=== PATIENT | female | born 1965 | race Caucasian/White ===

== ENCOUNTER → 2022-03-03 11:52 | Outpatient (BNVA) | payer OTHER, SELFPAY | PROVIDERS: PCP Internal Medicine; Visit Provider Psychiatry & Neurology Neurology | DX: G51.31 Clonic hemifacial spasm, right (principal) | CPT/HCPCS: 64612; J0585 ==

== ENCOUNTER → 2022-08-31 11:08 | Outpatient (BNVA) | payer OTHER, SELFPAY | PROVIDERS: PCP Internal Medicine; Visit Provider Psychiatry & Neurology Neurology | DX: G51.31 Clonic hemifacial spasm, right (principal) | CPT/HCPCS: 64612; J0585 ==

== ENCOUNTER → 2022-12-05 15:11 | Outpatient (BNVA) | payer OTHER, SELFPAY | PROVIDERS: PCP Internal Medicine; Visit Provider Psychiatry & Neurology Neurology | DX: G51.31 Clonic hemifacial spasm, right (principal) | CPT/HCPCS: 64612; 99211; J0585 ==

== ENCOUNTER 2023-05-10 09:47 | Outpatient (AMB) | payer OTHER, SELFPAY ==
--- NOTE | 2023-05-10 09:48 | A.OFFVIS_ITS ---
Intake Vital Signs 05/10/23 09:50 Height 5 ft 9 in Weight 162 lb 8 oz BMI 24.0 BP 144/90 H Blood Pressure Location Rt brachial Position Sitting Respiration 16 Pulse 71 Pulse Source Pulse Oximeter Pulse Oximetry (%) 100 Oxygen Delivery Method Room Air Intake Visit Reasons: Botox Intake Note: Pt presents to the office for Botox injections. Allergies No Known Allergies Allergy (Verified 05/10/23 09:49) Medication List - Last Reconciled 05/10/23 by Carmel Maynard MD lisinopril 5 mg PO DAILY metoprolol succinate ER 50 mg PO DAILY onabotulinumtoxinA (Botox) subcut HPI HPI Comments History of Present Illness Details 57y/o female comes for treatment with botox . side effects were explained again and patient agreed to the procedure . - side effects include increased weakness , droopy eyelids weakness of facial muscles etc. ??? Botulinum toxin type A lot no [id number] expiration Aug 2025 100 units was diluted with 0.5 cc of normal saline at a concentration of 10units in 0.1cc. ??? Muscles injected - ??? Right lateral canthus 15 units ??? Right lower eyelid - 15 units Right Upper eyelid- 5 units ??? Right zygomaticus 10 units ??? Right nasolabial fold - 15units ??? Right upper orbicularis behzad 5 units ??? Right mentalis 10units ??? Total used 75units ??? Discarded 25units PFSH Medical History Raynauds disease Brachial artery thrombus Lumbar spondylosis Osteopenia Surgical History Hx of heart surgery History of thoracotomy Hx of eye surgery Social History Household Members: Spouse Alcohol intake: never Patient Tobacco Use Status: Never used Tobacco Physical Exam Vital Signs: Last Vital Signs Pulse 71 05/10/23 09:50 Resp 16 05/10/23 09:50 BP 144/90 H 05/10/23 09:50 Pulse Ox 100 05/10/23 09:50 Oxygen Delivery Method Room Air 05/10/23 09:50 BMI result Body Mass Index 24.0 Const General: cooperative, healthy appearing and comfortable Nutritional Appearance: average body habitus Orientation/consciousness: patient oriented x3 Neuro Other: right hemifacial spasm General: patient oriented x3 Office Procedures Botulinum toxin Injection 87610 - Facial Nerve Procedure code (CPT) selection complete Office Meds onabotulinumtoxinA 100 unit solution for injection Performing Provider: Carmel Maynard MD [place] [facility] [place] [facility] Administered by: Carmel Maynard MD on 05/10/23 10:27 Dose Route Admin Location Dispensed Lot Number Expiration Date [facility] Spinning Lathe Operator Automatic 75 unit subcut 100 units [id number] 08/23/25 3132-4642-06 [employer] Comments: see HPI Assessment & Plan Assessment & Plan (1) Clonic hemifacial spasm, right: Code(s): G51.31 - Clonic hemifacial spasm, right Plan Patient tolerated the procedure well she will call with any side effects Orders: Orders AMB Botulinum toxin Injection Today G51.31 - Clonic hemifacial spasm, right Coding Level of Care Code Est Pt Level 1 (37444) Diagnoses Clonic hemifacial spasm, right G51.31 CPT Codes Botox Injection - Botox 2: 57082 - Facial Nerve ([id number])
[2023-05-10 09:50] VITALS: BP 144/90; PULSE 71; RESP 16; O2SAT 100; BMI 24.0
== END 2023-05-10 10:18 | disposition home or self-care (01) ==
PROVIDERS: PCP Internal Medicine; Visit Provider Psychiatry & Neurology Neurology
DX: G51.31 Clonic hemifacial spasm, right (principal)
CPT/HCPCS: 64612

== ENCOUNTER → 2023-05-10 09:47 | Outpatient (BNVA) | payer OTHER, SELFPAY | PROVIDERS: PCP Internal Medicine; Visit Provider Psychiatry & Neurology Neurology | DX: G51.31 Clonic hemifacial spasm, right (principal) | CPT/HCPCS: 64612; 99211; J0585 ==

== ENCOUNTER 2023-12-06 14:03 | Outpatient (AMB) | payer OTHER, SELFPAY ==
--- NOTE | 2023-12-06 14:26 | A.OFFVIS_ITS ---
Vital Signs 12/06/23 14:32 Height 5 ft 9 in Weight 142 lb 4 oz BMI 21.0 BP 122/60 Blood Pressure Location Lt brachial Position Sitting Pulse 54 Pulse Source Pulse Oximeter Pulse Oximetry (%) 98 Oxygen Delivery Method Room Air Intake Visit Reasons: Botox - LVM w/add Intake Note: Patient presents for Botox. Allergies No Known Allergies Allergy (Verified 12/06/23 14:32) Medication List - Last Reconciled 12/06/23 by Carmel Maynard MD lisinopril 5 mg PO DAILY metoprolol succinate ER 50 mg PO DAILY onabotulinumtoxinA (Botox) to be injected to facial muscles by physician q 3mths subcutaneously; 90 days HPI Comments Details: 58y/o female comes for treatment with botox . side effects were explained again and patient agreed to the procedure . - side effects include increased weakness , droopy eyelids weakness of facial muscles etc. ??? Botulinum toxin type A lot no [id number] expiration October 2025 100 units was diluted with 0.5 cc of normal saline at a concentration of 10units in 0.1cc. ??? Muscles injected - ??? Right lateral canthus 15 units ??? Right lower eyelid - 15 units Right Upper eyelid- 5 units ??? Right zygomaticus 10 units ??? Right nasolabial fold - 15units ??? Right upper orbicularis behzad 5 units ??? Right mentalis 10units ??? Total used 75units ??? Discarded 25units [facility] Medical History Raynauds disease Brachial artery thrombus Lumbar spondylosis Osteopenia Surgical History Hx of heart surgery History of thoracotomy Hx of eye surgery Social History Household Members: Spouse Alcohol intake: never Patient Tobacco Use Status: Never used Tobacco Physical Exam Vital Signs: Last Vital Signs Pulse 54 12/06/23 14:32 BP 122/60 12/06/23 14:32 Pulse Ox 98 12/06/23 14:32 Oxygen Delivery Method Room Air 12/06/23 14:32 BMI result Body Mass Index 21.0 Const General: cooperative, healthy appearing and comfortable Nutritional Appearance: average body habitus Orientation/consciousness: patient oriented x3 Neuro Other: right hemifacial spasm General: patient oriented x3 Office Procedures Botulinum toxin Injection 93425 - Facial Nerve Procedure code (CPT) selection complete Office Meds onabotulinumtoxinA 100 unit solution for injection Performing Provider: Carmel Maynard MD Performing Location: [facility] [place] [facility] Administered by: Carmel Maynard MD on 12/06/23 14:52 Dose Route Admin Location Dispensed Lot Number Expiration Date [facility] [place]NOTE 2] Gin Inspector 75 unit subcut 100 units [id number] 10/21/25 5894-4493-79 [employer] Comments: see HPI Assessment & Plan Assessment & Plan (1) Clonic hemifacial spasm, right: Code(s): G51.31 - Clonic hemifacial spasm, right Category: Medical Plan Patient tolerated the procedure well she will call with any side effects Orders: Orders AMB Botulinum toxin Injection - Patient Supplied Today G51.31 - Clonic hemifacial spasm, right Medications: New onabotulinumtoxinA 100 units subcut ONCE 1 ea 0RF Right hemifacial spasm G51.31 - Clonic hemifacial spasm, right Coding Level of Care Code Est Pt Level 1 (64934) Diagnoses Clonic hemifacial spasm, right G51.31 CPT Codes Botox Injection - Botox 2: 38024 - Facial Nerve ([id number])
[2023-12-06 14:32] VITALS: BP 122/60; PULSE 54; O2SAT 98; BMI 21.0
== END 2023-12-06 14:50 | disposition home or self-care (01) ==
PROVIDERS: PCP Internal Medicine; Visit Provider Psychiatry & Neurology Neurology
DX: G51.31 Clonic hemifacial spasm, right (principal)
CPT/HCPCS: 64612

== ENCOUNTER → 2023-12-06 14:03 | Outpatient (BNVA) | payer OTHER, SELFPAY | PROVIDERS: PCP Internal Medicine; Visit Provider Psychiatry & Neurology Neurology | DX: G51.31 Clonic hemifacial spasm, right (principal) | CPT/HCPCS: 64612; 99211; J0585 ==

== ENCOUNTER 2024-06-04 14:51 | Outpatient (AMB) | payer OTHER, SELFPAY ==
[2024-06-04 15:10] VITALS: BMI 21.0
--- NOTE | 2024-06-04 15:10 | A.OFFVIS_ITS ---
Vital Signs 06/04/24 15:10 Height 5 ft 9 in Weight 142 lb BMI 21.0 Intake Visit Reasons: Botox Intake Note: Patient presents for botox Allergies No Known Allergies Allergy (Verified 06/04/24 15:14) Medication List - Last Reconciled 06/04/24 by Carmel Maynard MD lisinopril 5 mg PO DAILY metoprolol succinate ER 50 mg PO DAILY onabotulinumtoxinA (Botox) to be injected to facial muscles by physician q 3mths subcutaneously; 90 days HPI Comments Details: 58y/o female comes for treatment with botox . side effects were explained again and patient agreed to the procedure . - side effects include increased weakness , droopy eyelids weakness of facial muscles etc. ??? Botulinum toxin type A lot no [id number] expiration February 2026 100 units was diluted with 0.5 cc of normal saline at a concentration of 10units in 0.1cc. ??? Muscles injected - ??? Right lateral canthus 15 units ??? Right lower eyelid - 15 units Right Upper eyelid- 5 units ??? Right zygomaticus 10 units ??? Right nasolabial fold - 15units ??? Right upper orbicularis behzad 5 units ??? Right mentalis 10units ??? Total used 75units ??? Discarded 25units [facility] Medical History Raynauds disease Brachial artery thrombus Lumbar spondylosis Osteopenia Surgical History Hx of heart surgery History of thoracotomy Hx of eye surgery Social History Household Members: Spouse Alcohol intake: never Patient Tobacco Use Status: Never used Tobacco Physical Exam Vital Signs: BMI result Body Mass Index 21.0 Const General: cooperative, healthy appearing and comfortable Nutritional Appearance: average body habitus Orientation/consciousness: patient oriented x3 Neuro Other: right hemifacial spasm General: patient oriented x3 Office Procedures Botulinum toxin Injection 13871 - Facial Nerve Procedure code (CPT) selection complete Office Meds onabotulinumtoxinA 100 unit solution for injection Performing Provider: Carmel Maynard MD [place] [facility] [place] [facility] Administered by: Carmel Maynard MD on 06/04/24 15:33 Dose Route Admin Location Dispensed Lot Number Expiration Date [employer] Chief Construction Inspector 70 unit subcut 100 units [id number] 02/20/26 7913-0095-83 [employer] Comments: see HPI Assessment & Plan Assessment & Plan (1) Clonic hemifacial spasm, right: Code(s): G51.31 - Clonic hemifacial spasm, right Category: Medical Plan Patient tolerated the procedure well she will call with any side effects Orders: Orders AMB Botulinum toxin Injection - Patient Supplied N/C Today G51.31 - Clonic hemifacial spasm, right Medications: New onabotulinumtoxinA 100 units subcut ONCE 1 ea 0RF [id number] G51.31 - Clonic hem ifacial spasm, right Coding Level of Care Code Est Pt Level 1 (46338) Diagnoses Clonic hemifacial spasm, right G51.31 CPT Codes Botox Injection - Botox 2: 54675 - Facial Nerve ([id number])
== END 2024-06-04 15:43 | disposition home or self-care (01) ==
PROVIDERS: PCP Internal Medicine; Visit Provider Psychiatry & Neurology Neurology
DX: G51.31 Clonic hemifacial spasm, right (principal)
CPT/HCPCS: 64612

== ENCOUNTER → 2024-06-04 14:51 | Outpatient (BNVA) | payer OTHER, SELFPAY | PROVIDERS: PCP Internal Medicine; Visit Provider Psychiatry & Neurology Neurology | DX: G51.31 Clonic hemifacial spasm, right (principal) | CPT/HCPCS: 64612; 99211; J0585 ==

== ENCOUNTER 2024-11-04 13:21 | Outpatient (AMB) | payer OTHER, SELFPAY ==
[2024-11-04 13:46] VITALS: PULSE 58; O2SAT 98; BMI 21.0
--- NOTE | 2024-11-04 13:46 | MHC.OFFVIS ---
Vital Signs 11/04/24 13:46 Height 5 ft 9 in Weight 142 lb BMI 21.0 Pulse 58 Pulse Source Pulse Oximeter Pulse Oximetry (%) 98 Oxygen Delivery Method Room Air Intake Visit Reasons: Botox Intake Note: Patient presents for botox injection. patient supplied Allergies No Known Allergies Allergy (Verified 11/04/24 13:49) Medication List - Last Reconciled 11/04/24 by Carmel Maynard MD lisinopril 5 mg PO DAILY meloxicam 15 mg PO DAILY metoprolol succinate ER 50 mg PO DAILY onabotulinumtoxinA (Botox) to be injected to facial muscles by physician q 3mths subcutaneously; 90 days HPI Comments Details: 58y/o female comes for treatment with botox . side effects were explained again and patient agreed to the procedure . - side effects include increased weakness , droopy eyelids weakness of facial muscles etc. [id number] expiration Mat 2026 100 units was diluted with 0.5 cc of normal saline at a concentration of 10units in 0.1cc. ??? Muscles injected - ??? Right lateral canthus 15 units ??? Right lower eyelid - 15 units Right Upper eyelid- 5 units ??? Right zygomaticus 10 units ??? Right nasolabial fold - 15units ??? Right upper orbicularis behzad 5 units ??? Right mentalis 10units ??? Total used 75units ??? Discarded 25units [facility] Medical History Raynauds disease Brachial artery thrombus Lumbar spondylosis Osteopenia Surgical History Hx of heart surgery History of thoracotomy Hx of eye surgery Social History Household Members: Spouse Alcohol intake: never Patient Tobacco Use Status: Never used Tobacco Physical Exam Vital Signs: Last Vital Signs Pulse 58 11/04/24 13:46 Pulse Ox 98 11/04/24 13:46 Oxygen Delivery Method Room Air 11/04/24 13:46 BMI result Body Mass Index 21.0 Const General: cooperative, healthy appearing and comfortable Nutritional Appearance: average body habitus Orientation/consciousness: patient oriented x3 Neuro Other: right hemifacial spasm General: patient oriented x3 Office Procedures Botulinum toxin Injection 64702 - Facial Nerve Procedure code (CPT) selection complete Office Meds onabotulinumtoxinA 100 unit solution for injection Performing Provider: Carmel Maynard MD Performing Location: [facility] [place] [facility] Administered by: Carmel Maynard MD on 11/04/24 14:21 Dose Route Admin Location Dispensed Lot Number Expiration Date [facility] Physician Credentialing Specialist 95 unit subcut 100 units [id number] [employer] Comments: see hpi Assessment & Plan Assessment & Plan (1) Clonic hemifacial spasm, right: Code(s): G51.31 - Clonic hemifacial spasm, right Category: Medical Plan Patient tolerated the procedure well she will call with any side effects Orders: Orders AMB Botulinum toxin Injection - Patient Supplied N/C Today G51.31 - Clonic hemifacial spasm, right Medications: New onabotulinumtoxinA 100 units subcut ONCE 1 ea 0RF hemifacial spasm G51.31 - Clonic hemifacial spasm, right Coding Level of Care Code Est Pt Level 1 (86857) Diagnoses Clonic hemifacial spasm, right G51.31 CPT Codes Botox Injection - Botox 2: 92771 - Facial Nerve ([id number])
--- OUTSIDE RECORDS SUMMARY | 2024-11-04 16:18 | XMS_ITS | Clinical Summary ---
Author Organization 175 [facility] Address 175 [place] [address] Phone Care Team Providers Care Lead Generation Specialist Name Role Phone Herrera Ness MD Primary Care Provider Allergies No known active allergies Medications amoxicillin (AMOXIL) 500 mg tablet Take 4 Tablets by mouth Active aspirin 81 mg EC tablet Take by mouth. Take 1 Tablet by mouth daily Active cetirizine (ZyrTEC) 10 mg tablet Take 1 Tablet by mouth daily Active lisinopriL (PRINIVIL,ZESTR IL) 5 mg tablet Take 1 Tablet by mouth daily Active metoprolol succinate (TOPROL-XL) 50 mg 24 hr tablet Take by mouth. Take 1 Tablet by mouth daily Active meloxicam (Mobic) 15 mg tablet Take 1 tablet (15 mg total) by mouth 1 (one) time each day. 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 [address] [place] [address] Herrera Ness MD 09/18/2024 1:30 PM EST Consult Orthopedic Surgery [facility] [address] [facility] [address] [place] [address] Philippe Adam, DPNora Acute left ankle pain (Primary Dx); Disorder of ligament of ankle, left; Venous insufficiency from Last 3 Months Immunizations Name Administration Dates Next Due Moderna SARS-CoV-2 COVID-19, mRNA, LNP-S, preservative free 01/31/2022,12/01/2020,11/03/2020 Tdap Tetanus diptheria acell ular pertussis (Boostrix; Adacel) 7yo and older 09/20/2018 Surgical History Surgery Date Site/Laterality Comments EYE SURGERY PROCEDURE: HISTORICAL EYE SURGERY; COMMENT: surgery times 2; blepharospasm, gets botox injections OTHER SURGICAL HISTORY PROCEDURE: ---- OTHER ----; COMMENT: took botox injection?? many years OTHER SURGICAL HISTORY 07/02/2012 PROCEDURE: [place] TRANSMYOCRD LASER REVSC PFRMD TM OTH OPN CAR PX; COMMENT: port access mitral valve repair, physiological ring finger. Mitral valve ring annuloplasty Medical History Medical History Date Comments Raynaud's phenomenon 03/16/2018 DX:Raynaud' s phenomenon Social History Tobacco Use Types Packs/Day Years Used Date Smoking Tobacco: Never Smokeless Tobacco: Never Alcohol Use Standard Drinks/Week Comments No 0 (1 standard drink = 0.6 oz pur e alcohol) Comments Unknown Sex and Gender Information Value Date Recorded Sex Assigned at Not on file Legal Sex Female 9:51 AM EST Gender Identity Not on file Sexual Orientation Not on file Obstetrics History Last Filed Vital Signs Vital Sign Reading Time Taken Comments Blood Pressure 120/90 02/15/2024 8:52 AM EDT Pulse 60 02/15/2024 8:52 AM EDT Temperature - - Respiratory Rate - - Oxygen Saturation - - Inhaled Oxygen Concentration - - Weight 74.8 kg (165 lb) 02/15/2024 8:52 AM EDT Height 165.1 cm (5' 5 ) 02/15/2024 8:52 AM EDT Body Mass Index 27.46 02/15/2024 8:52 AM EDT Plan of Treatment Upcoming Encounters Date Type Department Care Team ([facility] st Contact Info) Description 12/10/2024 4:00 PM EDT Office Visit Internal Medicine - [place] 175 [facility] [address] [place] [phone] Herrera Ness MD 175 [facility] [address] [place] [address] 01/14/2025 3:00 PM EDT Office Visit Orthopedic Surgery - [place] 250 175 [facility] [address] [place] [phone] Philippe Adam DPM 175 [facility] [address] [place] [address] Health Maintenance Due Date Last Done Comments Breast Cancer Screening 1965 Hepatitis B Vaccines (1 of 3 - 19+ 3-dose series) 11/16/1986 Cervical Cancer Screening: Pap Smear 11/16/1988 Pneumococcal Vaccine: 50+ Years (1 of 1 - PCV) 11/16/2017 Zoster Vaccines (1 of 2) 11/16/2017 Colorectal Cancer Screening: Colonoscopy 07/01/2022 Depression Screening 07/01/2022 HIV Screening 07/01/2022 Hepatitis C Screening 07/01/2022 Social Influencers of Health Screening 07/01/2022 Hypertension/CHF/CAD Annual BMP Blood Test 09/23/2023 09/22/2022 COVID-19 Vaccine ( season) 2024 10/07/2022, 01/31/2022, 12/01/2020, Additional history exists Influenza Vaccine (Season Ended) 2025 Cholesterol Screening (Lipid Panel) 09/23/2027 09/22/2022 DTaP,Tdap,and Td Vaccines (2 - Td or Tdap) 09/20/2028 09/20/2018 HIB Vaccines Aged Out No longer eligi ble based on patient's age to complete this topic HPV Vaccines Aged Out No longer eligi ble based on patient's age to complete this topic Hepatitis A Vaccines Aged Out No long er eligible based on patient's age to complete this topic IPV Vaccines Aged Out No longer eligi ble based on patient's age to complete this topic MMR Vaccines Aged Out No longer eligi ble based on patient's age to complete this topic Meningococcal ACWY Vaccine Aged Out N o longer eligible based on patient's age to complete this topic Meningococcal B Vaccine Aged Out No l onger eligible based on patient's age to complete this topic Pneumococcal Vaccine: Pediatrics (0 to 5 Years) and At-Risk Patients (6 to 64 Years) Aged Out No longer eligible based on patient's age to complete this topic RSV Immunization Patients Under 20 months Aged Out No longer eligible based on patient's age to complete this topic Varicella Vaccines Aged Out No longer eligible based on patient's age to complete this topic Procedures Procedure Name Priority Date/Time Associated Diagnosis Comments ANNUAL BMP BLOOD TEST Routine 09/22/2022 LIPID PANEL Routine 09/22/2022 from Last 3 Months or Most Recently Relevant to Health Maintenance Results * Annual BMP Blood Test (09/22/2022) Pathologist [facility] Annual BMP Blood Test ABSTRACTED Historical Provider HEALTH MAINTENANCE Final Result * (ABNORMAL) Lipid panel (09/22/2022) Pathologist [facility] LDL/HDL Ratio 4 0 - 4 Triglycerides 89 0 - 150 mg/dL Cholesterol 184 0 - 200 mg/dL HDL 47 >=40 mg/dL LDL Cholesterol 120(A) 0 - 100 mg/dL Blood Venous blood specimen / Unknown Historical Provider LAB BLOOD ORDERABLES Sheila l Result from Last 3 Months or Most Recently Relevant to Health Maintenance Insurance AETNA AETNA Care Teams Lead Generation Specialist Relationship Specialty Start Date End Date Herrera Ness MD [address] [place] [id number] PCP - General Internal Medicine 10/31/24
--- OUTSIDE RECORDS SUMMARY | 2024-11-04 16:18 | XMS_ITS | Encounter Summary ---
Author Organization [facility] Address [address] [place] [phone] Care Team Providers Care Rn Integrated Name Role Phone Herrera Ness MD Primary Care Provider [phone] Encounter Details Date Type Department Care Team ([facility] Contact Info) Description 10/31/2024 Telephone Internal Medicine [facility] [address] [phone] Herrera Ness MD [address] [address] Social History Tobacco Use Types Packs/Day Years Used Date Smoking Tobacco: Never Smokeless Tobacco: Never Alcohol Use Standard Drinks/Week Comments No 0 (1 standard drink = 0.6 oz pur e alcohol) Comments Unknown Sex and Gender Information Value Date Recorded Sex Assigned at Not on file Legal Sex Female 9:51 AM EST Gender Identity Not on file Sexual Orientation Not on file documented as of this encounter Plan of Treatment Upcoming Encounters Date Type Department Care Team ([facility] Contact Info) Description 12/10/2024 4:00 PM EDT Office Visit Internal Medicine [facility] [address] [phone] Herrera Ness MD [address] [address] 01/14/2025 3:00 PM EDT Office Visit Orthopedic Surgery [place] [address] [phone] Philippe Adam DPM [address] [address] documented as of this encounter Visit Diagnoses Not on filedocumented in this encounter Care Teams Rn Integrated Relationship Specialty Start Date End Date Herrera Ness MD [address] [place] [address] PCP - General Internal Medicine 10/31/24 documented as of this encounter
== END 2024-11-04 14:17 | disposition home or self-care (01) ==
LOC: HO.HSMS 13:21
PROVIDERS: PCP Internal Medicine; Visit Provider Psychiatry & Neurology Neurology
DX: G51.31 Clonic hemifacial spasm, right (principal)
CPT/HCPCS: 64612

== ENCOUNTER → 2024-11-04 13:21 | Outpatient (BNVA) | payer OTHER, SELFPAY | PROVIDERS: PCP Internal Medicine; Visit Provider Psychiatry & Neurology Neurology | DX: G51.31 Clonic hemifacial spasm, right (principal) | CPT/HCPCS: 64612; 99211; J0585 ==

== ENCOUNTER 2025-02-24 14:14 | Outpatient (AMB) | payer OTHER, SELFPAY ==
[2025-02-24 14:31] VITALS: BP 120/80; PULSE 76; O2SAT 98; BMI 20.8
--- NOTE | 2025-02-24 14:31 | A.OFFVIS_ITS ---
Vital Signs 02/24/25 14:31 Height 5 ft 9 in Weight 141 lb BMI 20.8 BP 120/80 Blood Pressure Location Lt brachial Position Sitting Pulse 76 Pulse Source Pulse Oximeter Pulse Oximetry (%) 98 Oxygen Delivery Method Room Air Intake Visit Reasons: Botox Truck Body Builder Apprentice Required: No Accompanied by: Self / Same As Patient Allergies No Known Allergies Allergy (Verified 02/24/25 14:32) Medication List - Last Reconciled 02/24/25 by Carmel Maynard MD lisinopril 5 mg PO DAILY meloxicam 15 mg PO DAILY metoprolol succinate ER 50 mg PO DAILY onabotulinumtoxinA (Botox) to be injected to facial muscles by physician q 3mths subcutaneously; 90 days HPI Comments Details: 59y/o female comes for treatment with botox . side effects were explained again and patient agreed to the procedure . - side effects include increased weakness , droopy eyelids weakness of facial muscles etc. [id number] expiration Apr 2027 100 units was diluted with 0.5 cc of normal saline at a concentration of 10units in 0.1cc. ??? Muscles injected - ??? Right lateral canthus 15 units ??? Right lower eyelid - 15 units Right Upper eyelid- 5 units ??? Right zygomaticus 10 units ??? Right nasolabial fold - 15units ??? Right upper orbicularis behzad 5 units ??? Right mentalis 10units ??? Total used 75units ??? Discarded 25units [facility] Medical History Raynauds disease Brachial artery thrombus Lumbar spondylosis Osteopenia Surgical History Hx of heart surgery History of thoracotomy Hx of eye surgery Social History Household Members: Spouse Alcohol intake: never Patient Tobacco Use Status: Never used Tobacco Physical Exam Vital Signs: Last Vital Signs Pulse 76 02/24/25 14:31 BP 120/80 02/24/25 14:31 Pulse Ox 98 02/24/25 14:31 Oxygen Delivery Method Room Air 02/24/25 14:31 BMI result Body Mass Index 20.8 Const General: cooperative, healthy appearing and comfortable Nutritional Appearance: average body habitus Orientation/consciousness: patient oriented x3 Neuro Other: right hemifacial spasm General: patient oriented x3 Office Procedures Botulinum toxin Injection 94730 - Facial Nerve Procedure code (CPT) selection complete Office Meds onabotulinumtoxinA 100 unit solution for injection Performing Provider: Carmel Maynard MD Performing Location: [facility] Administered by: Carmel Maynard MD on 02/24/25 15:50 Dose Route Admin Location Dispensed Lot Number Expiration Date [facility] Refractory Tile Helper 75 unit subcut 100 units [id number] [employer] Total Dispensed Waste 100 units 25 % Comments: see hpi Assessment & Plan Assessment & Plan (1) Clonic hemifacial spasm, right: Code(s): G51.31 - Clonic hemifacial spasm, right Category: Medical Plan Patient tolerated the procedure well she will call with any side effects Orders: Orders AMB Botulinum toxin Injection - Patient Supplied N/C Today G51.31 - Clonic hemifacial spasm, right Coding Level of Care Code Est Pt Level 1 (63318) Diagnoses Clonic hemifacial spasm, right G51.31 CPT Codes Botox Injection - Botox 2: 41842 - Facial Nerve ([id number])
--- OUTSIDE RECORDS SUMMARY | 2025-02-24 14:54 | XMS_ITS | Clinical Summary ---
Author Organization 175 [facility] Address [address] [place] [address] Phone Care Team Providers Care President Sales And Marketing Name Role Phone Herrera Ness MD Primary Care Provider [phone] Allergies No known active allergies Medications amoxicillin (AMOXIL) 500 mg tablet Take 4 Tablets by mouth Active cetirizine (ZyrTEC) 10 mg tablet Take 1 Tablet by mouth daily Active lisinopriL (PRINIVIL,ZESTR IL) 5 mg tablet Take 1 tablet (5 mg total) by mouth 1 (one) time each day. Take 1 Tablet by mouth daily 90 each 3 12/29/2024 6 Active metoprolol succinate (TOPROL-XL) 50 mg 24 hr tablet Take 1 tablet (50 mg total) by mouth 1 (one) time each day. Take 1 Tablet by mouth daily 90 each 3 12/29/2024 6 Active aspirin 81 mg EC tablet Take 1 tablet (81 mg total) by mouth 1 (one) time each day. Take 1 Tablet by mouth daily 90 each 3 12/29/2024 6 Active cyclobenzaprine (FLEXERIL) 5 mg tablet Take 1 tablet (5 mg total) by mouth 3 (three) times a day if needed for muscle spasms. 30 tablet 2 12/29/2024 6 Active ergocalciferol (VITAMIN D-2) 1,250 mcg (50,000 unit) capsule Take 1 capsule (50,000 Units total) by mouth 1 (one) time per week. 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 Dyspnea on exertion 06/14/2024 Hypertension 06/14/2024 Osteopenia determined by x-ray 06/14/2024 Pterygium eye, left 06/14/2024 Raynaud's phenomenon 06/14/2024 Encounters Date Type Department Care Team Description 01/09/2025 Telephone Internal Medicine [facility] [address] [facility] [address] [place] [phone] Veronica Velez MA Referral 01/09/2025 Telephone Internal Medicine [facility] 175 [facility] [address] [place] [address] Veronica Velez MA Letter for School/Work 01/08/2025 Telephone Internal Medicine [facility] [address] [facility] [address] [place] [phone] Herrera Ness MD 12/29/2024 4:00 PM EDT Office Visit Internal Medicine [facility] [address] [facility] [address] [place] [phone] Herrera Ness MD Encounter for annual physical exam (Primary Dx); Primary hypertension; Raynaud's phenomenon without gangrene; Varicose veins of left lower extremity with pain; Other fatigue; Vitamin D deficiency; Encounter for lipid screening for cardiovascular disease; Other abnormal glucose; Muscle spasm of back from Last 3 Months Immunizations Name Administration [...] many years OTHER SURGICAL HISTORY 07/02/2012 PROCEDURE: [place] TRANSMYOCRD LASER REVSC PFRMD TM OTH OPN CAR PX; COMMENT: port access mitral valve repair, physiological ring finger. Mitral valve ring annuloplasty Medical History Medical History Date Comments Raynaud's phenomenon 03/16/2018 DX:Raynaud' s phenomenon Family History Medical History Relation Name Comments Kidney disease Father Parkinsonism Father Heart disease Mother Relation Name Status Comments Father Maternal Grandfather Maternal Grandmother Mother Paternal Grandfather Paternal Grandmother Social History Tobacco Use Types Packs/Day Years Used Date Smoking Tobacco: Never Smokeless Tobacco: Never Alcohol Use Standard Drinks/Week Comments No 0 (1 standard drink = 0.6 oz pur e alcohol) Education Answer Date Recorded What is the highest level of school you have completed or the highest degree you have received? Some college, no degree 12/29/2024 Comments Unknown Sex and Gender Information Value Date Recorded Sex Assigned at Not on file Legal Sex Female 9:51 AM EST Gender Identity Not on file Sexual Orientation Not on file Obstetrics History Last Filed Vital Signs Vital Sign Reading Time Taken Comments Blood Pressure 124/74 12/29/2024 4:00 PM EDT Pulse 62 12/29/2024 4:00 PM EDT Temperature - - Respiratory Rate - - Oxygen Saturation 97% 12/29/2024 4:00 PM EDT Inhaled Oxygen Concentration - - Weight 74.8 kg (165 lb) 12/29/2024 4:00 PM EDT Height 165.1 cm (5' 5 ) 02/15/2024 8:52 AM EDT Body Mass Index 27.46 02/15/2024 8:52 AM EDT Plan of Treatment Upcoming Encounters Date Type Department Care Team (Late st Contact Info) Description 03/24/2025 2:00 PM EDT Office Visit Orthopedic [facility] [address] [phone] Philippe Adam DPM [address] [address] Health Maintenance Due Date Last Done Comments Breast Cancer Screening 1965 Hepatitis B Vaccines (1 of 3 - 19+ 3-dose series) 11/16/1986 Cervical Cancer Screening: Pap Smear 11/16/1988 Pneumococcal Vaccine: 50+ Years (1 of 1 - PCV) 11/16/2017 Zoster Vaccines (1 of 2) 11/16/2017 HIV Screening 07/01/2022 Hepatitis C Screening 07/01/2022 COVID-19 Vaccine (5 - season) 2024 10/07/2022, 01/31/2022, 12/01/2020, Additional history exists Depression Screening 07/23/2024 Influenza Vaccine (#1) 2025 Social Influencers of Health Screening 12/29/2025 12/29/2024 Hypertension/CHF/CAD Annual BMP Blood Test 01/19/2026 01/19/2025, 09/22/2022, 09/24/2015 DTaP,Tdap,and Td Vaccines (2 - Td or Tdap) 09/20/2028 09/20/2018 Cholesterol Screening (Lipid Panel) 01/19/2030 01/19/2025, 09/22/2022, 09/24/2015 Colorectal Cancer Screening: Colonoscopy 03/07/2034 03/07/2024 HIB Vaccines Aged Out No longer eligi [...] Procedure Name Priority Date/Time Associated Diagnosis Comments CBC WITH AUTO DIFFERENTIAL Routine 01/19/2025 10:19 AM EDT Encounter for annual physical exam Other fatigue THYROID STIMULATING HORMONE WITH REFLEX TO FREE T4 AND FREE T3 Routine 01/19/2025 10:19 AM EDT Encounter for annual physical exam Other fatigue VITAMIN D 25 HYDROXY Routine 01/19/2025 10:19 AM EDT Encounter for annual physical exam Vitamin D deficiency LIPID PANEL WITH REFLEX TO DIRECT LDL Routine 01/19/2025 10:19 AM EDT Encounter for annual physical exam Encounter for lipid screening for cardiovascular disease COMPREHENSIVE METABOLIC PANEL Routine 01/19/2025 10:19 AM EDT Encounter for annual physical exam Other fatigue VITAMIN B12 Routine 01/19/2025 10:19 AM EDT Encounter for annual physical exam Other fatigue HEMOGLOBIN A1C Routine 01/19/2025 10:19 AM EDT Encounter for annual physical exam Other abnormal glucose CBC AND DIFFERENTIAL Routine 01/19/2025 10:19 AM EDT Encounter for annual physical exam Other fatigue from Last 3 Months Results * Thyroid stimulating hormone with reflex to free t4 and free t3 (01/19/2025 10:19 AM EDT) TSH 1.34 0.40 - 4.00 mcIU/mL LAB CHEMISTRY METHOD 01/19/2025 12:[address] [facility] Blood Venous blood specimen / Unknown Venipuncture / Unknown 01/19/2025 10:19 AM EDT 01/19/2025 10:19 AM EDT us Herrera Ness MD LAB BLOOD ORDERABLES Final Resul t [facility] [address] [place] [address], [place] [phone] * Lipid panel with reflex to direct LDL (01/19/2025 10:19 AM EDT) Cholesterol 167 0 - 200 mg/dL LAB CHEMISTRY METHOD 01/19/2025 12:[address] [facility] Triglycerides 77 0 - 150 mg/dL LAB CHEMISTRY METHOD 01/19/2025 12:[address] [facility] HDL 55 >=40 mg/dL LAB CHEMISTRY METHOD 01/19/2025 12:[address] [facility] LDL Calculated 97 0 - 100 mg/dL LAB CHEMISTRY METHOD 01/19/2025 12:[address] [facility] VLDL Cholesterol Deshawn 15.4 mg/dL LAB CHEMISTRY METHOD 01/19/2025 12:[address] [facility] Non HDL Chol. (LDL+VLDL) 112 <145 mg/dL LAB CHEMISTRY METHOD 01/19/2025 12:[address] [facility] Chol/HDL Ratio 3.0 0.0 - 4.4 LAB CHEMISTRY METHOD 01/19/2025 12:[address] [facility] Blood Venous blood specimen / Unknown Venipuncture / Unknown 01/19/2025 10:19 AM EDT 01/19/2025 10:19 AM EDT us Herrera Ness MD LAB BLOOD ORDERABLES Final Resul t [facility] [address] [place] [address], [place] [phone] * (ABNORMAL) CBC auto differential (01/19/2025 10:19 AM EDT) WBC 6.2 4.8 - 10.8 K/mcL LAB HEMETOLOGY METHOD 01/19/2025 1:[address] [facility] RBC 4.40 3.80 - 4.80 M/mcL LAB HEMETOLOGY METHOD 01/19/2025 1:[address] [facility] Hemoglobin 13.6 11.5 - 16.0 g/dL LAB HEMETOLOGY METHOD 01/19/2025 1:[address] [facility] Hematocrit 42.1 35.0 - 47.0 % LAB HEMETOLOGY METHOD 01/19/2025 1:[address] [facility] MCV 95.2 79.0 - 98.0 FL LAB HEMETOLOGY METHOD 01/19/2025 1:[address] [facility] MCH 30.8 27.0 - 32.0 pcg LAB HEMETOLOGY METHOD 01/19/2025 1:[address] [facility] MCHC 32.3 32.0 - 37.0 g/dL LAB HEMETOLOGY METHOD 01/19/2025 1:16 PM [facility] RDW 13.8 11.0 - 15.0 % LAB [facility] Platelets 227 130 - 400 K/mcL LAB HEMETOLOGY METHOD 01/19/2025 1:16 PM [facility] MPV 11.3(H) 7.0 - 11.0 FL LAB HEMETOLOGY METHOD [facility]19[facility] NRBC 0.0 <1.0 % LAB HEMETOLOGY METHOD 01/19/2025 1:16 PM [facility] NRBC Absolute 0.00 <0.10 K/mcL LAB HEMETOLOGY METHOD 01/19/2025 1:16 PM [facility] Neutrophils Relative 51.2 % LAB HEMETOLOGY METHOD 01/19/2025 1:[address] [facility] Lymphocytes Relative 37.9 % LAB HEMETOLOGY METHOD [facility] Monocytes Relative 7.7 % LAB HEMETOLOGY METHOD 01/19/2025 1:16 PM [facility] Eosinophils Relative 1.9 % LAB HEMETOLOGY METHOD [facility]/19[facility] Basophils Relative 0.8 % LAB HEMETOLOGY METHOD 01/19/2025 1:[address] [facility] Immature Granulocytes Relative 0.5 % LAB HEMETOLOGY METHOD 01/19/2025 1:[address] [facility] Neutrophils Absolute 3.17 1.50 - 7.00 K/mcL LAB HEMETOLOGY METHOD 01/19/2025 1:[address] [facility] Lymphocytes Absolute 2.35 1.00 - 5.00 K/mcL LAB HEMETOLOGY METHOD 01/19/2025 1:[address] [facility] Monocytes Absolute 0.48 0.20 - 1.00 K/mcL LAB HEMETOLOGY METHOD 01/19/2025 1:[address] [facility] Eosinophils Absolute 0.12 0.00 - 0.50 K/mcL LAB HEMETOLOGY METHOD 01/19/2025 1:[address] [facility] Basophils Absolute 0.05 0.00 - 0.20 K/mcL LAB HEMETOLOGY METHOD 01/19/2025 1:[address] [facility] Immature Granulocytes Absolute 0.03 0.00 - 0.03 K/mcL LAB HEMETOLOGY METHOD 01/19/2025 1:[address] [facility] Blood Venous blood specimen / Unknown Venipuncture / Unknown 01/19/2025 10:19 AM EDT 01/19/2025 10:19 AM EDT us Herrera Ness MD LAB BLOOD ORDERABLES Final Resul t [facility] [address] [place] [address], * (ABNORMAL) Vitamin D 25 hydroxy (01/19/2025 10:19 AM EDT) Vit D, 25-Hydroxy 7.7(L) 30.0 - 80.0 ng/mL LAB CHEMISTRY METHOD 01/19/2025 12:[address] [facility] Blood Venous blood specimen / Unknown Venipuncture / Unknown 01/19/2025 10:19 AM EDT 01/19/2025 10:19 AM EDT Herrera Ness MD LAB BLOOD ORDERABLES Final Resul t Performing Organization Address [facility] de Phone Number [facility] [address] [place] [address], [place] [phone] * Hemoglobin A1c (01/19/2025 10:19 AM EDT) Hemoglobin A1C 5.9 <6.5 % LAB CHEMISTRY METHOD 01/19/2025 2:[address] [facility] Mean Bld Glu Estim. 123 mg/dL LAB CHEMISTRY METHOD 01/19/2025 2:[address] [facility] Blood Venous blood specimen / Unknown Venipuncture / Unknown 01/19/2025 10:19 AM EDT 01/19/2025 10:19 AM EDT Herrera Ness MD LAB BLOOD ORDERABLES Final Resul t Performing Organization Address [facility] Co de Phone Number [facility] [address] [place] [address], [place] [phone] * Vitamin B12 (01/19/2025 10:19 AM EDT) Vitamin B-12 445 250 - 900 pcg/mL LAB CHEMISTRY METHOD 01/19/2025 12:[address] [facility] Blood Venous blood specimen / Unknown Venipuncture / Unknown 01/19/2025 10:19 AM EDT 01/19/2025 10:19 AM EDT us Herrera Ness MD LAB BLOOD ORDERABLES Final Resul t [facility] [address] [place] [address], * Comprehensive metabolic panel (01/19/2025 10:19 AM EDT) Sodium 141 133 - 145 mmol/L LAB CHEMISTRY METHOD 01/19/2025 12:14 PM [facility] Potassium 4.5 3.5 - 5.5 mmol/L LAB CHEMISTRY METHOD 01/19/2025 12:14 PM [facility] Chloride 110 96 - 110 mmol/L LAB CHEMISTRY METHOD 01/19/2025 12:14 PM [facility] CO2 24 21 - 32 mmol/L LAB CHEMISTRY METHOD 01/19/2025 12:14 PM [facility] Anion Gap 7 3 - 11 LAB CHEMISTRY METHOD 01/19/2025 12:14 PM [facility] Glucose 98 70 - 100 mg/dL LAB CHEMISTRY METHOD 01/19/2025 12:14 PM [facility] BUN 10 5 - 25 mg/dL LAB CHEMISTRY METHOD 01/19/2025 12:14 PM [facility] Creatinine 0.90 0.50 - 1.10 mg/dL LAB CHEMISTRY METHOD 01/19/2025 12:14 PM [facility] eGFR 75 >=60 mL/min/1. 73m2 LAB CHEMISTRY METHOD 01/19/2025 12:14 PM [facility] Comment:Calculation based on the Chronic Kidney Disease Epidemiology Collaboration (CKD-EPI) equation refit without adjustment for race. BUN/Creatinine Ratio 11.1 LAB CHEMISTRY METHOD 01/19/2025 12:14 PM [facility] Calcium 8.8 8.5 - 10.5 mg/dL LAB CHEMISTRY METHOD 01/19/2025 12:[address] [facility] AST (SGOT) 16 10 - 42 unit/L LAB CHEMISTRY METHOD 01/19/2025 12:[address] [facility] ALT (SGPT) 19 10 - 60 unit/L LAB CHEMISTRY METHOD 01/19/2025 12:[address] [facility] Alkaline Phosphatase 67 42 - 121 unit/L LAB CHEMISTRY METHOD 01/19/2025 12:[address] [facility] Total Protein 7.4 6.0 - 8.0 g/dL LAB CHEMISTRY METHOD 01/19/2025 12:[address] [facility] Albumin 3.6 3.2 - 5.0 g/dL LAB CHEMISTRY METHOD 01/19/2025 12:[address] [facility] Total Bilirubin 0.5 0.0 - 1.4 mg/dL LAB CHEMISTRY METHOD 01/19/2025 12:[address] [facility] Blood Venous blood specimen / Unknown Venipuncture / Unknown 01/19/2025 10:19 AM EDT 01/19/2025 10:19 AM EDT Herrera Ness MD LAB BLOOD ORDERABLES Final Resul t [facility] [address] [place] [address], from Last 3 Months Insurance [employer] Care Teams President Sales And Marketing Relationship Specialty Start Date End Date Herrera Ness MD [address] [place] [address] PCP - General Internal Medicine 10/31/24
== END 2025-02-24 14:52 | disposition home or self-care (01) ==
LOC: HO.HSMS 14:14
PROVIDERS: PCP Internal Medicine; Visit Provider Psychiatry & Neurology Neurology
DX: G51.31 Clonic hemifacial spasm, right (principal)
CPT/HCPCS: 64612

== ENCOUNTER → 2025-02-24 14:14 | Outpatient (BNVA) | payer OTHER, SELFPAY | PROVIDERS: PCP Internal Medicine; Visit Provider Psychiatry & Neurology Neurology | DX: G51.31 Clonic hemifacial spasm, right (principal) | CPT/HCPCS: 64612; 99211; J0585 ==